=== PATIENT | female | born 2005 | race Caucasian/White ===

== ENCOUNTER 2024-07-28 00:26 | Emergency (ER) | payer BC, SELFPAY ==
--- OUTSIDE RECORDS SUMMARY | 2024-07-28 00:29 | XMS_ITS | Continuity of Care Document ---
Author Organization [facility] Address [address] [address] [place] [address] Phone Care Team Providers Care Hand Polisher Name Role Phone No Information Unavailable Unavailable Advance Directives Directive Yes / No Effective Date File Name No Information Encounters Encounter Description Practice Location Reason(s) For Visit Diagnoses Date Provider Providers Copied on Encounter [facility], [address] [address], [place], [place], [id number], [place] tel:[phone] No Information No Information Family History Family Member Type Diagnosis Age At Onset No Information Payers Payer name Insurance type Covered constitution party ID Authoriza tion(s) No Information Social History Type Description Quantity Date Captured Comments Sex Female Smoking Status No Information Chief Complaint And Reason For Visit No Information Reason For Referral Reason For Referral No Information History Of Present Illness Encounter Date Complaint History Of Prese nt Illness No Information Functional Status Date Functional Assessmen t No Information Instructions Date Instruction Additional Infor mation No Information Assessments Type Assessment Date No Information Patient Care Teams Name Effective Dates (start - stop) Status Members No Information
--- OUTSIDE RECORDS SUMMARY | 2024-07-28 00:29 | XMS_ITS | Clinical Summary ---
Author Organization [facility] Address [address] [address] Phone Care Team Providers Care Voice Professor Name Role Phone Unavailable Primary Care Provider Unavailabl e Allergies Active Allergy Reactions Criticality Noted Date Comments Cats Hives High 06/07/2019 Contact dermatitis Medications acyclovir (Zovirax) 200 MG capsule Take 200 mg by mouth two times a day. 03/11/2021 Active escitalopram (Lexapro) 5 MG tablet Take 10 mg by mouth one time a day. 09/25/2021 Active ethinyl estradiol-etono gestrel (Nuvaring) 0.12-0.015 MG/24HR vaginal insert 10/03/2020 Active nitrofurantoin (Macrodantin) 50 MG capsule 08/24/2021 Activ e hydrOXYzine HCl (Atarax) 25 MG tablet Take 1 Tablet by mouth at bedtime as needed. 07/06/2021 Active traZODone (Desyrel) 50 MG tablet Take 25-50 mg by mouth at bedtime as needed. 07/30/2020 Active Active Problems Problem Noted Date Diagnosed Date Nicotine vapor product user 10/21/2021 Recurrent UTI - post coital 10/21/2021 Recurrent major depressive disorder, in partial remission 09/12/2018 Generalized anxiety disorder 05/15/2018 Murmur, heart 11/25/2010 Overview (10/21/2021): Normal physiologic still's murmur and split S2, see cardiology notes 11/08 Attention deficit hyperactivity disorder (ADHD) 07/10/2009 Immunizations Name Administration Dates Next Due COVID-19 mRNA Vaccine (Pfize r-Purple 12+ Yrs) 03/26/2021,09/09/2020,08/19/2020 DTaP <7 years 12/18/2007, 7,2003,04/21,2003 Hepatitis A, Ped/Adolescent 2 dose 12/18/2007, Hepatitis B, Pediatric/adolescent 05/29/2006 Hepatitis B/HIB (Comvax) 2003,2003 Hib PRP OMP (PedvaxHib) 05/29/2006 Human Papilloma Virus 9 12/09/2016,02/19/2016 IPV 12/18/2007, 4,2003,02/24 Influenza (6-35 Mo) PF-Singl e Dose Syringe/Vial (Flu Clinic) 03/02/2004 Influenza A H1n1 Nasal 03/21/2014 Influenza Live Intranasal Qu ad (Flumist) 03/21/2014 Influenza Quad Split 02/26/2020,01/12/2018 Influenza Quadrivalent Intradermal PF 02/26/2020 ,01/12/2018 Influenza Trivalent Adjuvant ed Preservative Free (Fluad) 02/12/2013,06/09/2006 Influenza Trivalent With Preservative 02/12/2013 ,06/09/2006,03/02/2004 Influenza Unspecified Formulation 2020,03/21/2014,02/12/2013,06/09,03/02/2004 Influenza Vaccine (6 months - 64 Years) Quad PF Syringe (Flu Clinic) 01/28/2021,02/26/2019,02/13/2017,02/18,03/21/2014 MMR 12/18/2007,01/06/2004 Meningococcal MCV4 (Menveo) 2 Vials 04/12/2019,0 12/04/2014 Pneumococcal Conjugate, (Prevnar)7-valent 05/29/2006,2003,2003 Tdap (7 years and older) 12/04/2014 Varicella (Varivax) 12/04/2014,01/06/2004 Medical History Medical History Date Comments Nicotine vapor product user 10/21/2021 Attention deficit hyperactiv ity disorder (ADHD) 07/10/2009 Generalized anxiety disorder 05/15/2018 Murmur, heart 11/25/2010 Formatting of th is note might be different from the original. Normal physiologic still's murmur and split S2, see cardiology notes 11/08 Recurrent major depressive d isorder, in partial remission (HCC) 09/12/2018 Recurrent UTI - post coital 10/21/2021 Social History Tobacco Use Types Packs/Day Years Used Date Smoking Tobacco: Never Smokeless Tobacco: Never Comments:mother and father s moked; uses vapes Comments Unknown Sex and Gender Information Value Date Recorded Sex Assigned at Not on file Legal Sex Female 9:09 AM CDT Gender Identity Not on file Sexual Orientation Not on file Obstetrics History Last Filed Vital Signs Vital Sign Reading Time Taken Comments Blood Pressure 100/68 10/21/2021 9:27 AM CDT Pulse 92 10/21/2021 9:27 AM CDT Temperature 36.7 C (98 F) 10/21/2021 9:27 AM CDT Respiratory Rate - - Oxygen Saturation 98% 10/21/2021 9:27 AM CDT Inhaled Oxygen Concentration - - Weight 74.3 kg (163 lb 12.8 oz) 10/21/2021 9:27 AM CDT Height - - Body Mass Index - - Plan of Treatment Health Maintenance Due Date Last Done Comments Cervical Cancer Screening 2003 Last pap w/ HPV Testing 2003 Last pap w/o HPV Testing 2003 Chlamydia Screening 2019 Meningococcal B Vaccine (Standing Order) (1 of 2 - Standard) 2019 ADULT COMPLETE PHYSICAL AGE 19-21 YRS 2022 COVID-19 Vaccine ( season) 2023 03/26/2021, 09/09/2020, 08/19/2020 Influenza Vaccine Seasonal (Standing Order) (#1) 2023 01/28/2021, 01/28/2021, 02/26/2020, Additional history exists TETANUS (Standing Order) 12/04/2024 015, 12/18/2007, 05/29/2006, Additional history exists Hepatitis B Vaccine (Standing Order) Completed 05/29/2006, 2003, 2003 Pneumococcal/PCV20 Vaccine: Pediatrics (2-5 yrs) and At-Risk Patients (6-49 yrs) (Standing Order) Aged Out 05/29/2006, 2003, 2003 No longer eligible based on patient's age to complete this topic PERTUSSIS (Standing Order) Completed 12/04, 12/18/2007, 05/29/2006, Additional history exists HPV Vaccine (Standing Order) Completed 12/09/2016, 02/19/2016 Insurance [employer] [facility] [employer] Address: [facility] [address] [place] [address]
--- OUTSIDE RECORDS SUMMARY | 2024-07-28 00:29 | XMS_ITS | Clinical Summary ---
Author Organization [employer] Address [address] [place] [address] Care Team Providers Care Family Assistant Name Role Phone Manisha Ramos NP Unavailable [phone] Elisha Infante OD Unavailable Barbara Lu MD Unavailable [phone] Elisha Infante OD Unavailable Barbara Lu MD Unavailable [phone] Sheryl Ventura MD Primary Care Provi kristie Allergies Active Allergy Reactions Criticality Noted Date Comments Cat Dander Hives Medium 06/07/2019 Nitrofurantoin Hives High 12/18/2023 Medications acyclovir (ZOVIRAX) 200 mg capsule Take 200 mg by mouth. 1 Active Ganciclovir (Zirgan) 0.15 % gelIndications:He rpes simplex keratitis Instill small amount in the left eye 5 times per day x 5 days, then 3 times per day x 5 days 5 g 3 Active valACYclovir (VALTREX) 500 mg tabletIndications :Herpes keratitis Take 1 Tablet (500 mg) by mouth once daily. 30 Tablet 5 4 Active busPIRone (BUSPAR) 5 mg tabletIndications :Generalized anxiety disorder Take 1 Tablet (5 mg) by mouth two times daily. 60 Tablet 1 4 Active cephalexin 250 mg capsuleIndication s:Recurrent UTI Take 1 tablet within 3 hours of intercourse to prevent recurrent UTI. 30 Capsule 2 4 Active etonogestreL-ethi nyl estradioL (Haloette) vaginal ringIndications:E ncounter for other contraceptive management INSERT 1 RING VAGINALLY AND LEAVE IN PLACE FOR 3 CONSECUTIVE WEEKS, THEN REMOVE FOR 1 WEEK. REPEAT 9 Each 2 4 Active escitalopram oxalate (LEXAPRO) 20 mg tabletIndications :Generalized anxiety disorder TAKE 1 TABLET(20 MG) BY MOUTH DAILY 90 Tablet 1 5 Active Active Problems Problem Noted Date Diagnosed Date Cervical cancer screening 04/02/2024 Overview (07/10/2024): 03/2024 UNS 06/2024 NIL Plan: Pap due 06/2027 Nicotine vapor product user 10/21/2021 Recurrent UTI 10/21/2021 Recurrent major depressive disorder, in partial remission 09/12/2018 Generalized anxiety disorder 05/15/2018 Heart murmur 11/25/2010 Overview (11/25/2010): Normal physiologic still's murmur and split S2, see cardiology notes 11/08 Attention deficit hyperactivity disorder (ADHD) 07/10/2009 Resolved Problems Problem Noted Date Diagnosed Date Resolved Date Sever's disease 02/17/2013 03/06/2018 Overview (02/17/2013): See ortho notes 01/11 No active medical problems 02/24/2011 1 05/06/2017 Encounters Date Type Department Care Team Description 07/05/2024 Medical Messaging [facility] [place] [address] [address] Sheryl Ventura MD Celiac results 06/28/2024 8:35 AM BEDSPREAD SEAMER Office Visit [facility] [place] [address] [address] Sheryl Ventura MD Concerns (Concerns about Celiac. Family History ) 06/27/2024 Travel 06/15/2024 Refill [facility] [address] [place] [address] Sheryl Ventura MD Refill Request (Escitalopram Oxalate) 06/06/2024 8:45 AM BEDSPREAD SEAMER Nurse/Clinic Staff Only [facility] [address] [place] [address] Immunization/Injecti on (2ND HEPATITIS B VACCINE ); Immunization/Injecti on 06/05/2024 Travel 06/04/2024 5:05 PM BEDSPREAD SEAMER Office Visit [facility] [address] [place] [address] Laura Love, BOATBUILDER SUPERVISOR Cough 06/04/2024 Travel 05/06/2024 Nurse/Clinic Staff Only [facility] [address] [place] [address] Sheryl Ventura MD 05/05/2024 Travel from Last 3 Months Immunizations Immunization Administration Dates Next Due AMB Influenza, IIV4 PF (=>6 mos Flulaval,Fluzone Fluarix)(Flu Clinic Only) 02/26/2019 COVID-19 vaccine (Stuffle 30mcg/0.3mL) PF, MDV 03/26/2021,09/09/2020,08/19/2020 DTaP 12/18/2007, 7,2003,04/21,2003 HIB PRP-OMP (PedvaxHIB) 05/29/2006 HIB-HepB (Comvax) 2003,2003 HPV 9 (Gardasil 9) 12/09/2016,02/19/2016 Hepatitis A (Peds) 12/18/2007,05/29/2006 Hepatitis B (Adult) 06/06/2024,05/06/2024 Hepatitis B (Peds) 05/29/2006 INFLUENZA, IIV3 PF (AGE >= 6 MO) 03/20/2024 Inactivated Polio Vaccine 12/18/2007,03/2004,2003,02/24 Influenza A (H1N1), Live Intranasal 03/21/2014 Influenza Virus, Unspecified 01/28/2021, 03/21/2014,02/12/2013,06/09,03/02/2004 Influenza, IIV3 (Age 6-35 mos) 03/02/2004 Influenza, IIV3 (Age >=3 years) 02/12/2013,06/09 Influenza, IIV4 01/27/2023, 2,01/28/2021,02/13,02/19/2016,03/21/2014 Influenza, IIV4 (=>6mos) MDV 02/26/2020,01/13/20 18 Influenza, Intradermal, Quad rivalent, Pf 02/26/2020,01/12/2018 Influenza,LAIV4 Live Intrana eliazar (Flumist) 03/21/2014 MENINGOCOCCAL VACCINE 2 VIAL 2MO-55YO (MENVEO) 04/12/2019,12/04/2014 MMR 12/18/2007,01/06/2004 Pneumococcal conj 7-Valent (Prevnar 7) 7,2003,2003 Tdap 12/04/2014 Varicella Vaccine 12/04/2014,01/06/2004 Family History Medical History Relation Name Comments Good Health Father Atrial fibrillation Maternal Grandfather Hypertension Maternal Grandfather Good Health Mother Cancer Other 1 skin great GF Stroke Other 2 great GM Heart attack Paternal Grandfather Celiac disease Sister Heart Disease Sister anomalous loren nary artery Relation Name Status Comments Father Maternal Grandfather Mother Other 1 Other 2 Paternal Grandfather Sister Social History Tobacco Use Types Packs/Day Years Used Date Smoking Tobacco: Never Passive Smoke Exposure: Yes Smokeless Tobacco: Never Tobacco Cessation:Counseling Given: No Alcohol Use Standard Drinks/Week Comments Yes 0 (1 standard drink = 0.6 oz pur e alcohol) Occ PHQ-2 Answer Date Recorded PHQ-2 TOTAL SCORE 4 12/18/2023 Social Connections Answer Date Recorded Do you often feel lonely or isolated from those around you? 0 03/23/2024 Financial Resource Strain Answer Date R ecorded Difficulty of Paying Living Expenses 3 03/23/2024 Difficulty of Paying Living Expenses Not on file 03/23/2024 Food Insecurity Answer Date Recorded Do you worry your food will run out before you are able to buy more? 1 03/23/2024 Transportation Needs Answer Date Record ed Does lack of transportation keep you from medica l appointments? 1 03/23/2024 Does lack of transportation keep you from work, meetings or getting things that you need? 1 03/23/2024 Housing Stability Answer Date Recorded What is your housing situation today? 1 03/23/2024 Utilities Answer Date Recorded Do you have trouble paying f or utilities (for example, heat, electricity, water, phone)? 1 03/23/2024 Comments No Sex and Gender Information Value Date Recorded Sex Assigned at Not on file Legal Sex Female 6:30 AM BEDSPREAD SEAMER Gender Identity Not on file Sexual Orientation Not on file Obstetrics History Para Term AB IAB SAB Ectopic Multiple Livin g Live Births 0 0 0 0 0 0 0 0 0 0 0 Last Filed Vital Signs Vital Sign Reading Time Taken Comments Blood Pressure 101/69 06/28/2024 8:30 AM BEDSPREAD SEAMER Pulse 85 06/28/2024 8:30 AM BEDSPREAD SEAMER Temperature 36.8 C (98.2 F) 06/04/2024 5:51 PM BEDSPREAD SEAMER Respiratory Rate 18 06/04/2024 5:51 PM BEDSPREAD SEAMER Oxygen Saturation 99% 06/28/2024 8:30 AM BEDSPREAD SEAMER Inhaled Oxygen Concentration - - Weight 98.8 kg (217 lb 12.8 oz) 06/28/2024 8:30 AM BEDSPREAD SEAMER Height 171 cm (5' 7.32) 06/28/2024 8:30 AM BEDSPREAD SEAMER Body Mass Index 33.79 06/28/2024 8:30 AM BEDSPREAD SEAMER Plan of Treatment Upcoming Encounters Date Type Department Care Team (Late st Contact Info) Description 11/04/2024 10:15 AM CDT Nurse/Clinic Staff Only [facility] [address] [place] [address] 12/23/2024 11:00 AM CDT Office Visit [facility] [address] [place] [address] Ana Barney PA [address] [place] [address] Health Maintenance Due Date Last Done Comments Hepatitis C screening for age 18-79 2021 COVID-19 vaccine series ( season) 2023 03/26/2021, 09/09/2020, 08/19/2020 Chlamydia for age 16-24 11/06/2024 11/07/19 24, 07/03/2023, 01/27/2023, Additional history exists Tetanus booster 12/04/2024 12/04/2014 Depression screening for age 12+ 12/17/2024 12/18/2023, 09/21/2023, 07/03/2023, Additional history exists BMI (ht and wt on same day) for age 18+ 06/28/2025 06/28/2024, 03/25/2024, 12/18/2023, Additional history exists Pap test for age 21-65 06/28/2027 06/28/2024, 2023 Pneumococcal series for age 6-49 Aged Out 05/29/2006, 2003, 2003 No longer eligible based on patient's age to complete this topic Tdap Completed 12/04/2014 HPV series for age 9-26 Completed 12/09/2016, 02/18 Meningococcal series for age 11-21 Completed 04/12/2019, 12/04/2014 HIV for age 15-65 Completed 01/27/2023 Influenza Vaccine Completed 03/20/2024, , 04/20/2022, Additional history exists Procedures Procedure Name Priority Date/Time Associated Diagnosis Comments RECORDS MANAGEMENT ANALYST THIN PREP PAP SCREEN IMAGED Routine 06/28/2024 9:03 AM BEDSPREAD SEAMER Pap smear for cervical cancer screening CELIAC CASCADE PANEL Routine 06/28/2024 8:58 AM BEDSPREAD SEAMER Family history of celiac disease GC CHLAMYDIA TRACH PROBE Routine 11/07/2023 8:50 AM CDT Lower urinary tract symptoms (LUTS) ANTI HIV 1/2 Routine 01/27/2023 10:01 AM CDT Screening for HIV (human immunodeficiency virus) from Last 3 Months or Most Recently Relevant to Health Maintenance Results * RECORDS MANAGEMENT ANALYST THIN PREP PAP SCREEN IMAGED (06/28/2024 9:03 AM BEDSPREAD SEAMER) Case Report Gynecologic Cytology Report Case: [id number] Authorizing Provider: Sheryl Ventura Collected: 06/28/2024 0903 MD Zara Ordering Location: [facility] Received: 06/28/2024 0903 Clinic First Screen: Ramy Mendez Specimen: RECORDS MANAGEMENT ANALYST ThinPrep Vial Screening, Cervical 07/10/2024 12:22 PM CDT [facility] [employer] [facility] INTERPRETATION/ RESULT NEGATIVE FOR INTRAEPITHELIAL LESION OR MALIGNANCY (NIL) (none) 07/10/2024 12:22 PM CDT [facility] ENTRAL [facility] at 1222 CDT ORGANISM(S) Shift in daniel suggestive of bacterial vaginosis 07/10/2024 12:22 PM CDT [facility] ENTRAL LAB[facility] SPECIMEN ADEQUACY Satisfactory for evaluation Endocervical component present 07/10/2024 12:22 PM CDT [facility] Date of LMP 05/06/2024 07/10/2024 12:22 PM CDT [facility] EN[facility]AL LAB[facility]AT[facility] Last Pap Date 03/25/24 07/10/2024 12:22 PM CDT [facility] Last Pap Result UNS 12:22 PM CDT [facility] EN[facility]AL LAB[facility] Abnormal Pap or [place] Bx in last 5 years No 07/10/2024 12:22 PM CDT [facility] Menstrual Status Regular Periods 07/10/2024 12:22 PM CDT [facility] [place] Bx Done Today No 07/10/2024 12:22 PM CDT [facility] ENTRAL LAB[facility]ORY Additional Information None given 07/10/2024 12:22 PM CDT [facility] Comment: Cytology is screened at [facility], Central Laboratory - [address], [place] [address] and [facility] - [address] [place] [address] and [facility] - [address], [place] [address] Interpreted at [facility], Central Laboratory - [address], [place] [address] Automated Review Successful 07/10/2024 12:22 PM CDT [facility] [employer] [facility] ENTRAL LABORATORY Comment:Specimen processed s uccessfully by automated chemical production engineer device, ThinPrep Imaging System, [employer] Note The pap test is a screening technique, not a diagnostic procedure. It is used primarily to screen for squamous cancers and precursor lesions. Published studies have shown that it is subject to both false negative and false positive results. The pap test should not be used as the sole means to diagnose or exclude pre-malignant and malignant lesions. 07/10/2024 12:22 PM CDT [facility] ENTRDC LABORATORY Other (Cervical) Non-Blood / Unknown 06/28/2024 9:03 AM BEDSPREAD SEAMER 06/28/2024 9:03 AM BEDSPREAD SEAMER Sheryl Ventura MD PATHOLOGY/CYTOLOGY Final Result Performing Organization Address [facility] [[email or web address]] Co de Phone Number [facility] [address] [place] [address], [place] * (ABNORMAL) CELIAC CASCADE PANEL (06/28/2024 8:58 AM BEDSPREAD SEAMER) CELIAC DISEASE COMPREHENSIVE PANEL INTERPRETATION [employer] Comment: No serological evidence of celiac disease. Total serum IgA is elevated. Consider mucosal inflammatory conditions or underlying gammopathy. TISSUE TRANSGLUTAMINASE AB, IGA <1.0 U/mL [employer] Comment: Value Interpretation ----- <15.0 Antibody not detected > or = 15.0 Antibody detected IMMUNOGLOBULIN A 384(H) 47 - 310 mg/dL [employer] Blood BLOOD SPECIMEN / Unknown 06/28/2024 8:58 AM BEDSPREAD SEAMER 06/28/2024 8:58 AM BEDSPREAD SEAMER Sheryl Ventura MD SEND OUTS Fin al Result Performing Organization Address City/[facility]/ZIP Co de Phone Number [employer] [facility] [address] [place] [address], [place] [phone] [facility] [address] [place] [address] * GC & CHLAMYDIA DNA PCR [[id number]] (11/07/2023 8:50 AM CDT) CHLAMYDIA PROBE Negative 8:10 PM CDT [facility] TRAL LABORATORY N GONORRHOEAE PROBE Negative 11/07/2023 8:10 PM CDT [facility] TRA LABORATORY Other URINE SPECIMEN / Unknown Non-Blood / Unknown 11/07/2023 8:50 AM CDT 11/07/2023 8:50 AM CDT us Ene GALEANA MICROBIOLOGY Final Result Performing Organization Address [facility]/ZIP Co de Phone Number [facility] [address] [place] [address], [place] * ANTI HIV 1/2 [52954.0] (01/27/2023 10:01 AM CDT) Pathologist [facility] HIV-1/HIV-2 SCREEN Non-Reacti ve Non-Reacti ve 01/27/2023 4:50 PM CDT [facility] TRAL LABORATORY Comment:HIV-1 p24 and HIV-1/ HIV-2 Ab Not Detected. Blood BLOOD SPECIMEN / Unknown Venipuncture / Unknown 01/27/2023 10:01 AM CDT 01/27/2023 10:03 AM CDT us Sheryl Ventura MD SEND OUTS Fin al Result [facility] [address] [place] [address], from Last 3 Months or Most Recently Relevant to Health Maintenance Insurance [facility] FED EMP [facility] FED EMP WC [facility] Care Teams Family Assistant Relationship Specialty Start Date End Date Sheryl Ventura MD [address] [place] [address] PCP - General Pediatric 10/19/18 Manisha Ramos BOATBUILDER SUPERVISOR Family Practice 10/15/10 Elisha Infante OD Mechanic General Operational Test 07/29/13 Barbara Lu MD Ophthalmology Surgery 12/09/13 Elisha Infante OD Mechanic General Operational Test 07/29/13 Barbara Lu MD Ophthalmology Surgery 12/09/13
[2024-07-28 00:31] VITALS: BP 145/84; PULSE 103; RESP 18; TEMP 36.8; O2SAT 99; BMI 33.7
--- NOTE | 2024-07-28 00:33 | ED_ITS ---
HPI - General Adult General Chief complaint: Abdominal Pain Stated complaint: upper abdominal pain Time Seen by Provider: 07/28/24 00:30 History of Present Illness HPI narrative: CC: Upper Abdominal Pain abdominal pain starts on left side on goes to left flank. has been ongoing for last 3 hours. no pain in triage. denies fevers, n/v, diarrhea. 19-year-old woman presenting to the emergency department concern of upper abdominal pain Started around the time that was eating supper this evening. Is a deep aching pain mid abdomen seems to radiate rate around both sides somehow to her back. Notes a history of recurrent urinary tract infections but denies urinary symptoms. No history kidney stones. But 20 minutes prior to this interview she says she has double over I believe in the parking lot coming into the ER. Does have a history of heartburn but this feels different. Is not really short of breath but does start to breathe fast with the pain. Nauseated with the pain. Pain may last for min at a time. Thought maybe would be gas pain but just is not resolving and seems to be exactly the same location. Related Data Home Medications ?Medication ?Instructions ?Recorded ?Confirmed escitalopram oxalate 20 mg tablet 20 mg PO DAILY 07/28/24 07/28/24 etonogestrel 0.12 mg-ethinyl 1 vag ring vaginal DIRECTED 07/28/24 07/28/24 estradiol 0.015 mg/24 hr vaginal ring (Haloette) Allergies Allergy/AdvReac Type Severity Reaction Status Date / Time nitrofurantoin (From Allergy Mild Hives Verified 07/28/24 00:33 Macrobid) Review of Systems Status of ROS: Reports: 6 or more systems reviewed and unremarkable except as noted in History and below [facility] Medical History Depression ?F32.A - Depression, unspecified (ICD-10) Social History Smoking Status: Never smoker Second hand tobacco smoke exposure: No How often do you have a drink containing alcohol: never AUDIT-C Alcohol total score: 0 Non-prescribed substance use: denies use Exam Narrative: Exam Narrative: Pleasant. NAD. Currently essentially pain-free. Skin is warm and dry. She is well-perfused without edema. Breathing easily. Lungs are clear. Heart in mildly elevated rate in a regular rhythm. Abdomen is soft and nontender; no flank pain. No chest pain palpation. Const: Vital Signs, click to edit/add: Vital Signs - 24 hr 07/28/24 00:31 07/28/24 00:48 07/28/24 01:47 Temperature 98.3 F 98.3 F Pulse Rate [Right Pulse Oximeter] 103 H 81 Respiratory Rate 18 18 Blood Pressure [Ri ght Upper Arm] 145/84 H 127/79 Pulse Oximetry 99 99 99 Oxygen Delivery Me thod Room Air Room Air 07/28/24 02:05 Temperature 98.3 F Pulse Rate [Right Pulse Oximeter] Respiratory Rate Blood Pressure [Ri ght Upper Arm] Pulse Oximetry Oxygen Delivery Me thod Documenting provider has reviewed patient's vital signs: yes Course Vital Signs Vital signs: Initial Vital Signs Temperature 98.3 F 07/28/24 00:31 Temperature Source Temporal Artery Scan 07/28/24 00:31 Pulse Rate 103 H 07/28/24 00:31 Respiratory Rate 18 07/28/24 00:31 Blood Pressure 145/84 H 07/28/24 00:31 Blood Pressure Mean 104 07/28/24 00:31 Blood Pressure Position Sitting 07/28/24 00:31 Pulse Oximetry 99 07/28/24 00:31 Oxygen Delivery Method Room Air 07/28/24 00:31 Vital Signs Temperature 98.3 F 07/28/24 00:31 Pulse Rate 103 H 07/28/24 00:31 Respiratory Rate 18 07/28/24 00:31 Blood Pressure 145/84 H 07/28/24 00:31 Pulse Oximetry 99 07/28/24 00:31 Oxygen Delivery Method Room Air 07/28/24 00:31 Temperature 98.3 F 07/28/24 02:29 Pulse Rate 81 07/28/24 02:29 Respiratory Rate 18 07/28/24 02:29 Blood Pressure 127/79 07/28/24 02:29 Pulse Oximetry 99 07/28/24 01:47 Oxygen Delivery Method Room Air 07/28/24 01:47 Medications Administered Medications: Discontinued Medications Generic Name Dose Route Start Last Admin Trade Name Freq PRN Reason Stop Dose Admin Ketorolac Tromethamine 30 mg 07/28/24 01:59 07/28/24 02:05 Ketorolac 30 Mg/Ml Inj IVP 07/28/24 02:00 30 mg ONCE ONE Administration Ondansetron HCl 4 mg 07/28/24 00:44 07/28/24 00:54 Ondansetron Odt 4 Mg Tab PO 07/28/24 00:45 4 mg ONCE ONE Administration Medical Decision Making MDM Narrative Medical decision making narrative: Pending urinalysis. This might be ureteral stone and colic. Could trial a GI cocktail for some heartburn spasm here. The brevity of the intensive discomfort I be dissection or ureteral stone. I suppose could be duodenitis but otherwise does not have any GI symptoms. Perhaps has been experiencing some biliary colic. Think labs will help guide further evaluation. On reassessment has continued to have intermittent flares/cramps of pain. Has seemed to move into the middle abdomen. CT imaging by my independent review looks to show rather full stomach and duodenum but little else of remark in the abdomen. No perinephric stranding. All labs are normal. Urinalysis with mild findings. Would treat only if positive culture. Radiology over-read below Indication: Upper abdominal pain, bilateral flank pain Technique: Noncontrast CT through the abdomen and pelvis with multiplanar reformats. Comparison: None Findings: Lower chest: No acute abnormality appreciated. Hepatobiliary: No significant parenchymal abnormality is appreciated. Spleen: Unremarkable. Pancreas: No acute abnormality appreciated. Adrenal glands: No acute abnormality appreciated. Kidneys: No significant parenchymal abnormality appreciated. No visualized calculi. No hydronephrosis. Bowel: No obstruction. No focal perienteric or pericolonic stranding is appreciated. The appendix is visualized and appears unremarkable. Vascular: Poorly evaluated on this noncontrast examination. Lymph nodes: No gross lymphadenopathy. Peritoneum: No free air. No free fluid. : No acute abnormality appreciated. Soft tissues: No acute abnormality appreciated. Bones: No acute fracture. No lytic or blastic lesion. Impression: No abnormal findings appreciated to account for patient`s reported symptoms. Please note that all CT scans at this facility use dose modulation, iterative reconstruction, and/or weight-based dosing when appropriate to reduce radiation dose to as low as reasonably achievable. Dictated by Rosendo Wick MD @ 07/28/2024 1:44:00 AM Was seen earlier in June and Pap smear suggested BV may be present but she does not have any symptoms otherwise. Was also tested at that time for celiac disease. Apparently was negative but IgA was mildly elevated. Sometimes BV does cause unusual degree of abdominal pain. Given age and without comorbidities would be unlikely to have vascular dissection or ischemic bowel. Does not appear to have that kind of persistent/intense pain that I would normally see with ischemia. Will check D-dimer for further screening. She would like something more for pain; will order some ketorolac for background effect. Perhaps antispasmodic would be useful. Normal D-dimer does not entirely rule out dissection or clot but certainly less likely. With low pretest probability. Anticipating following up with [facility] for further testing related to celiac disease. Incidentally mother just had endoscopy and the home will be going gluten free. On some level I am reassured by the lack of reproducibility of your pain. Your labs and imaging overall is reassuring. We will be culturing your urine and if this grows something that appears to be treatable, we will give you a call. Certainly return for increasing and persistent pain, intractable vomiting, associated fever. Can certainly take ibuprofen or acetaminophen as you mentioned. Lab Data Lab results reviewed: Yes I reviewed the patient's lab results Labs: Lab Results 07/28/24 07/28/24 07/28/24 Range/Units 00:34 00:48 01:30 WBC 10.12 (4.50-11.00) K/uL RBC 4.89 (4.00-5.20) m/uL Hgb 14.3 (12.0-16.0) gm/dL Hct 42.1 (33.0-51.0) % MCV 86 (80-100) fL MCH 29 (26-34) pg MCHC 34 (32-36) gm/dL RDW Coeff of Nate 12.3 (11.5-15.5) % Plt Count 284 (140-440) K/uL Neut % (Auto) 63.9 (42.0-72.0) % Lymph % (Auto) 27.9 (20-44) % [place] % (Auto) 6.0 (0.0-11.0) % Eos % (Auto) 1.8 (0.0-7.0) % Baso % (Auto) 0.2 (0.0-3.0) % Neut # (Auto) 6.47 (1.7-7.0) K/uL Lymph # (Auto) 2.82 (0.90-2.90) K/uL [place] # (Auto) 0.60 (0.00-0.90) K/UL Eos # (Auto) 0.18 (0.00-0.50) K/uL Baso # (Auto) 0.02 (0.00-0.30) K/uL Abs Immat Gran (auto) 0.02 (0.00-0.30) K/uL Imm/Tot Granulo (auto) 0.2 % D-Dimer Quant (PE/DVT) 0.31 (0.00-0.50) ug/ml Sodium 140 (135-149) mmol/L Potassium 3.5 L (3.6-5.1) mmol/L Chloride 106 (96-114) mmol/L Carbon Dioxide 23 (20-32) mmol/L Anion Gap 11 (7-15) mEq/L BUN 12 (5-24) mg/dL Creatinine 0.7 (0.5-1.5) mg/dL Estimated Creat Clear 123.63 Estimated GFR 126 ml/min Glucose 92 (60-115) mg/dL Calcium 9.4 (8.4-10.6) mg/dL Total Bilirubin 0.5 (0.1-1.5) mg/dL Direct Bilirubin 0.3 (0.0-0.5) mg/dL AST 27 (12-35) U/L ALT 20 (4-35) U/L Alkaline Phosphatase 91 (40-150) U/L Total Protein 7.5 (6.0-8.3) g/dL Albumin 4.4 (3.3-5.0) g/dL Urine Color Yellow (Yellow) Urine Appearance Clear (Clear) Urine pH 6.0 (5.0-8.5) Ur Specific [place] 1.015 (1.000-1.030) Urine Protein Negative (Negative) Urine Glucose (UA) Negative (Negative) Urine Ketones Negative (Negative) Urine Blood Trace-intact A (Negative) Urine Nitrite Negative (Negative) Urine Bilirubin Negative (Negative) Urine Urobilinogen 0.2 (0.2-1.0) Ur Leukocyte Esterase 1+ A (Negative) Urine RBC 2-5 A (0-2) Urine WBC 2-5 (0-5) Ur Squamous Epith Cells None (None-Few) Urine Bacteria Few A (None) Urine HCG, Qual (Negative) Lab Acknowledgement 07/28/24 07/28/24 Range/Units 02:00 Unknown WBC (4.50-11.00) K/uL RBC (4.00-5.20) m/uL Hgb (12.0-16.0) gm/dL Hct (33.0-51.0) % MCV (80-100) fL MCH (26-34) pg MCHC (32-36) gm/dL RDW Coeff of Nate (11.5-15.5) % Plt Count (140-440) K/uL Neut % (Auto) (42.0-72.0) % Lymph % (Auto) (20-44) % [place] % (Auto) (0.0-11.0) % Eos % (Auto) (0.0-7.0) % Baso % (Auto) (0.0-3.0) % Neut # (Auto) (1.7-7.0) K/uL Lymph # (Auto) (0.90-2.90) K/uL [place] # (Auto) (0.00-0.90) K/UL Eos # (Auto) (0.00-0.50) K/uL Baso # (Auto) (0.00-0.30) K/uL Abs Immat Gran (auto) (0.00-0.30) K/uL Imm/Tot Granulo (auto) % D-Dimer Quant (PE/DVT) (0.00-0.50) ug/ml Sodium (135-149) mmol/L Potassium (3.6-5.1) mmol/L Chloride (96-114) mmol/L Carbon Dioxide (20-32) mmol/L Anion Gap (7-15) mEq/L BUN (5-24) mg/dL Creatinine (0.5-1.5) mg/dL Estimated Creat Clear Estimated GFR ml/min Glucose (60-115) mg/dL Calcium (8.4-10.6) mg/dL Total Bilirubin (0.1-1.5) mg/dL Direct Bilirubin (0.0-0.5) mg/dL AST (12-35) U/L ALT (4-35) U/L Alkaline Phosphatase (40-150) U/L Total Protein (6.0-8.3) g/dL Albumin (3.3-5.0) g/dL Urine Color (Yellow) Urine Appearance (Clear) Urine pH (5.0-8.5) Ur Specific [place] (1.000-1.030) Urine Protein (Negative) Urine Glucose (UA) (Negative) Urine Ketones (Negative) Urine Blood (Negative) Urine Nitrite (Negative) Urine Bilirubin (Negative) Urine Urobilinogen (0.2-1.0) Ur Leukocyte Esterase (Negative) Urine RBC (0-2) Urine WBC (0-5) Ur Squamous Epith Cells (None-Few) Urine Bacteria (None) Urine HCG, Qual Negative (Negative) Lab Acknowledgement Test Added Discharge Plan Discharge Clinical Impression: Abdominal pain Patient Disposition: Home w/ Parent or Adult Condition: Stable Additional Instructions: On some level I am reassured by the lack of reproducibility of your pain. Your labs and imaging overall is reassuring. We will be culturing your urine and if this grows something that appears to be treatable, we will give you a call. Certainly return for increasing and persistent pain, intractable vomiting, associated fever. Can certainly take ibuprofen or acetaminophen as you mentioned. Prescriptions: No Action etonogestrel-ethinyl estradiol [Haloette] 0.12-0.015 mg/24 hr ring 1 vag ring VAGINAL DIRECTED Patient Comments: [NO ORIGINAL SIG] escitalopram oxalate 20 mg tablet 20 mg PO DAILY Follow Up/Referrals: Sheryl Ventura MD [Primary Care Provider] - Stand Alone Forms: [employer] Info Instructions
[2024-07-28 00:36] LABS: Appearance Urine Clear (Clear); Bacteria Urine Few; Bilirubin Urine Negative (Negative); Blood Urine Trace-intact (Negative); Color Urine Yellow (Yellow); Glucose Urine Negative (Negative); Ketones Urine Negative (Negative); Leukocyte Esterase Urine 1+ (Negative); Nitrite Urine Negative (Negative); Protein Urine Negative (Negative); Specific Gravity Urine 1.015 (1.000-1.030); Urobilinogen Urine 0.2 (0.2-1.0)
[2024-07-28 00:48] VITALS: O2SAT 99
[2024-07-28 00:53] LABS: Basophils Absolute Auto 0.02 K/uL (0.00-0.30); Basophils Percent Auto 0.2 % (0.0-3.0); Eosinophils Absolute Auto 0.18 K/uL (0.00-0.50); Eosinophils Percent Auto 1.8 % (0.0-7.0); Hematocrit 42.1 % (33.0-51.0); Hemoglobin* 14.3 gm/dL (12.0-16.0); Immature Granulocytes Abs Auto 0.02 K/uL (0.00-0.30); Immature Granulocytes Pct Auto 0.2 %; Lymphocytes Absolute Auto 2.82 K/uL (0.90-2.90); Lymphocytes Percent Auto 27.9 % (20-44); Mean Corpuscular HGB Conc 34 gm/dL (32-36); Mean Corpuscular Hemoglobin 29 pg (26-34); Mean Corpuscular Volume 86 fL (80-100); Neutrophils Absolute Auto 6.47 K/uL (1.7-7.0); Neutrophils Percent Auto 63.9 % (42.0-72.0); Platelet Count* 284 K/uL (140-440); RDW Coefficient of Variation % 12.3 % (11.5-15.5); Red Blood Count 4.89 m/uL (4.00-5.20); White Blood Count* 10.12 K/uL (4.50-11.00)
[2024-07-28 00:54] LABS: Slide Review Reflex No
[2024-07-28] MEDS: ONDANSETRON ODT 4 MG TAB PO (00:54)
[2024-07-28 00:55] LABS: Ur HCG Qualitative* Negative (Negative)
[2024-07-28 01:11] LABS: Albumin* 4.4 g/dL (3.3-5.0); Chloride* 106 mmol/L (96-114); Potassium* 3.5 mmol/L (3.6-5.1); Sodium* 140 mmol/L (135-149)
[2024-07-28 01:14] LABS: Alanine Aminotransferase* 20 U/L (4-35); Alkaline Phosphatase* 91 U/L (40-150); Anion Gap 11 mEq/L (7-15); Aspartate Amino Transferase* 27 U/L (12-35); Bilirubin Direct* 0.3 mg/dL (0.0-0.5); Bilirubin Total* 0.5 mg/dL (0.1-1.5); Blood Urea Nitrogen* 12 mg/dL (5-24); Calcium* 9.4 mg/dL (8.4-10.6); Carbon Dioxide* 23 mmol/L (20-32); Creatinine* 0.7 mg/dL (0.5-1.5); Est. Creatinine Clearance* 123.63; Estimated Glomerular Filt Rate 126 ml/min; Glucose* 92 mg/dL (60-115); Total Protein* 7.5 g/dL (6.0-8.3)
--- NOTE | 2024-07-28 01:20 | CRLHL7_ITS ---
For Patients: As a result of the Century Cures Act, medical imaging exams and procedure reports are released immediately into your electronic medical record. You may view this report before your referring provider. If you have questions, please contact your health care provider. Indication: Upper abdominal pain, bilateral flank pain Technique: Noncontrast CT through the abdomen and pelvis with multiplanar reformats. Comparison: None Findings: Lower chest: No acute abnormality appreciated. Hepatobiliary: No significant parenchymal abnormality is appreciated. Spleen: Unremarkable. Pancreas: No acute abnormality appreciated. Adrenal glands: No acute abnormality appreciated. Kidneys: No significant parenchymal abnormality appreciated. No visualized calculi. No hydronephrosis. Bowel: No obstruction. No focal perienteric or pericolonic stranding is appreciated. The appendix is visualized and appears unremarkable. Vascular: Poorly evaluated on this noncontrast examination. Lymph nodes: No gross lymphadenopathy. Peritoneum: No free air. No free fluid. : No acute abnormality appreciated. Soft tissues: No acute abnormality appreciated. Bones: No acute fracture. No lytic or blastic lesion. Impression: No abnormal findings appreciated to account for patient`s reported symptoms. Please note that all CT scans at this facility use dose modulation, iterative reconstruction, and/or weight-based dosing when appropriate to reduce radiation dose to as low as reasonably achievable. Dictated by Rosendo Wick MD @ 07/28/2024 1:44:00 AM (Electronically Signed)
[2024-07-28 01:47] VITALS: BP 127/79; PULSE 81; RESP 18; TEMP 36.8; O2SAT 99
--- OUTSIDE RECORDS SUMMARY | 2024-07-28 01:48 | XMS_ITS | Continuity of Care Document ---
Author Organization [facility] Address [address] [address] [place] [address] Phone Care Team Providers Care Editorial Cartoonist Name Role Phone No Information Unavailable Unavailable Advance Directives Directive Yes / No Effective Date File Name No Information Encounters Encounter Description Practice Location Reason(s) For Visit Diagnoses Date Provider Providers Copied on Encounter [facility], [address] [address], [place], [place], [id number], [place] tel:[phone] No Information No Information Family History Family Member Type Diagnosis Age At Onset No Information Payers Payer name Insurance type Covered libertarian ID Authoriza tion(s) No Information Social History [...]
--- OUTSIDE RECORDS SUMMARY | 2024-07-28 01:48 | XMS_ITS | Clinical Summary ---
Author Organization [facility] Address [address] [place] [id number] Care Team Providers Care Vp Cardiovascular Service Line Name Role Phone Manisha Ramos NP Unavailable [phone] Elisha Infante OD Unavailable Barbara Lu MD Unavailable Elisha Infante OD Unavailable Barbara Lu MD Unavailable Sheryl Ventura MD Primary Care Provi kristie [...] Department Care Team Description 07/05/[address] [facility] [place] [address] [address] Sheryl Ventura MD Celiac results 06/28/2024 8:35 AM CASH ANALYST Office Visit [facility] [place] [address] [address] Sheryl Ventura MD Concerns (Concerns about Celiac. Family History ) 06/27/2024 Travel 06/15/[address] [facility] [address] [place] [address] Sheryl Ventura MD Refill Request (Escitalopram Oxalate) 06/06/2024 8:45 AM CASH ANALYST Nurse/Clinic Staff Only [facility] [address] [place] [address] Immunization/Injecti on (2ND HEPATITIS B VACCINE ); Immunization/Injecti on 06/05/2024 Travel 06/04/2024 5:05 PM CASH ANALYST Office Visit [facility] [address] [place] [place] [address] Laura Love, INSURANCE FOLLOW UP REP Cough 06/04/2024 Travel 05/06/2024 Nurse/Clinic Staff Only [facility] [address] [place] [address] Sheryl Ventura MD 05/05/2024 Travel from Last 3 Months Immunizations Immunization Administration Dates Next Due AMB Influenza, IIV4 PF (=>6 mos Flulaval,Fluzone Fluarix)(Flu Clinic Only) 02/26/2019 COVID-19 vaccine (Bridj 30mcg/0.3mL) PF, MDV 03/26/2021,09/09/2020,08/19/2020 DTaP 12/18/2007, 7,2003,04/21,2003 [...] on file Legal Sex Female 6:30 AM CASH ANALYST Gender Identity Not on file Sexual Orientation Not on file Obstetrics History Para Term AB IAB SAB Ectopic Multiple Livin g Live Births 0 0 0 0 0 0 0 0 0 0 0 Last Filed Vital Signs Vital Sign Reading Time Taken Comments Blood Pressure 101/69 06/28/2024 8:30 AM CASH ANALYST Pulse 85 06/28/2024 8:30 AM CASH ANALYST Temperature 36.8 C (98.2 F) 06/04/2024 5:51 PM CASH ANALYST Respiratory Rate 18 06/04/2024 5:51 PM CASH ANALYST Oxygen Saturation 99% 06/28/2024 8:30 AM CASH ANALYST Inhaled Oxygen Concentration - - Weight 98.8 kg (217 lb 12.8 oz) 06/28/2024 8:30 AM CASH ANALYST Height 171 cm (5' 7.32) 06/28/2024 8:30 AM CASH ANALYST Body Mass Index 33.79 06/28/2024 8:30 AM CASH ANALYST Plan of Treatment Upcoming Encounters Date Type Department Care Team (Late st Contact Info) Description 11/04/2024 10:15 AM CDT Nurse/Clinic Staff Only [facility] [address] [place] [address] 12/23/2024 11:00 AM CDT Office Visit [facility] [address] [place] [address] Ana Barney PA [address] [place] [address] Health Maintenance Due Date Last Done Comments [...] Procedure Name Priority Date/Time Associated Diagnosis Comments INSPECTOR AND HAND PACKAGER THIN PREP PAP SCREEN IMAGED Routine 06/28/2024 9:03 AM CASH ANALYST Pap smear for cervical cancer screening CELIAC CASCADE PANEL Routine 06/28/2024 8:58 AM CASH ANALYST Family history of celiac disease GC CHLAMYDIA TRACH PROBE Routine 11/07/2023 8:50 AM CDT Lower urinary tract symptoms (LUTS) ANTI HIV 1/2 Routine 01/27/2023 10:01 AM CDT Screening for HIV (human immunodeficiency virus) from Last 3 Months or Most Recently Relevant to Health Maintenance Results * INSPECTOR AND HAND PACKAGER THIN PREP PAP SCREEN IMAGED (06/28/2024 9:03 AM CASH ANALYST) Case Report Gynecologic Cytology Report Case: [id number] Authorizing Provider: Sheryl Ventura Collected: 06/28/2024 0903 MD Zara Ordering Location: [facility] Received: 06/28/2024 0903 Clinic First Screen: Ramy Mendez Specimen: INSPECTOR AND HAND PACKAGER ThinPrep Vial Screening, Cervical 07/10/2024 12:22 PM CDT [facility] Open English [facility] INTERPRETATION/ RESULT NEGATIVE FOR INTRAEPITHELIAL LESION OR MALIGNANCY (NIL) (none) 07/10/2024 12:22 PM CDT [facility] at 1222 CDT ORGANISM(S) Shift in daniel suggestive of bacterial vaginosis 07/10/2024 12:22 PM CDT [facility] SPECIMEN ADEQUACY Satisfactory for evaluation Endocervical component present 07/10/2024 12:22 PM CDT [facility] Date of LMP 05/06/2024 07/10/2024 12:22 PM CDT [facility] EN[facility] Last Pap Date 03/25/24 07/10/2024 12:22 PM CDT [facility] Last Pap Result UNS 12:22 PM CDT [facility] Abnormal Pap or [place] Bx in last 5 years No 07/10/2024 12:22 PM CDT [facility] Menstrual Status Regular Periods 07/10/2024 12:22 PM CDT [facility] [place] Bx Done Today No 07/10/2024 12:22 PM CDT [facility] ENTR[facility] LAB[facility] Additional Information None given 07/10/2024 12:22 PM CDT [facility] Comment: Cytology is screened at [facility], Central Laboratory - [address], [place] [address] and [facility] - [address] [place] [address] and [facility] - [address], [place] [address] Interpreted at [facility], Central Laboratory - [address], [place] [address] Automated Review Successful 07/10/2024 12:22 PM CDT [facility] Open English [facility] ENTRAL LAB[facility] Comment:Specimen processed s uccessfully by automated photogeologist device, ThinPrep Imaging System, [employer] Note The pap test is a [...] and malignant lesions. 07/10/2024 12:22 PM CDT [facility] Other (Cervical) Non-Blood / Unknown 06/28/2024 9:03 AM CASH ANALYST 06/28/2024 9:03 AM CASH ANALYST Sheryl Ventura MD PATHOLOGY/CYTOLOGY Final Result Performing Organization Address [facility] Co de Phone Number [facility] [address] [place] [address], [place] * (ABNORMAL) CELIAC CASCADE PANEL (06/28/2024 8:58 AM CASH ANALYST) CELIAC DISEASE COMPREHENSIVE PANEL INTERPRETATION [employer] Comment: No serological evidence of celiac disease. Total serum IgA is elevated. Consider mucosal inflammatory conditions or underlying gammopathy. TISSUE TRANSGLUTAMINASE AB, IGA <1.0 U/mL [employer] Comment: Value Interpretation ----- <15.0 Antibody not detected > or = 15.0 Antibody detected IMMUNOGLOBULIN A 384(H) 47 - 310 mg/dL [employer] Blood BLOOD SPECIMEN / Unknown 06/28/2024 8:58 AM CASH ANALYST 06/28/2024 8:58 AM CASH ANALYST Sheryl Ventura MD SEND OUTS Fin al Result Performing Organization Address City/[facility]/ZIP Co de Phone Number [employer] [facility] [address] [place] [address], [place] [phone] [facility] [address] [place] [address] * GC & CHLAMYDIA DNA PCR [[id number]] (11/07/2023 8:50 AM CDT) CHLAMYDIA PROBE Negative 8:10 PM CDT [facility] N GONORRHOEAE PROBE Negative 11/07/2023 8:10 PM CDT [facility] Other URINE SPECIMEN / Unknown Non-Blood / Unknown 11/07/2023 8:50 AM CDT 11/07/2023 8:50 AM CDT us Ene [facility]ALE[facility] MICROBIOLOGY Final Result Performing Organization Address [facility]/ZIP Co de Phone Number [facility] [address] [place] [address], [place] * ANTI HIV 1/2 [79164.0] (01/27/2023 10:01 AM CDT) Pathologist [facility] HIV-1/HIV-2 SCREEN Non-Reacti ve Non-Reacti ve 01/27/2023 4:50 PM CDT [facility] Comment:HIV-1 p24 and HIV-1/ HIV-2 Ab Not Detected. Blood BLOOD SPECIMEN / Unknown Venipuncture / Unknown 01/27/2023 10:01 AM CDT 01/27/2023 10:03 AM CDT us Sheryl Ventura MD SEND OUTS Fin al Result [facility] [address] [place] [address], from Last 3 Months or Most Recently Relevant to Health Maintenance Insurance [facility] FED EMP [facility] FED EMP WC [facility] [employer] Care Teams Vp Cardiovascular Service Line Relationship Specialty Start Date End Date Sheryl Ventura MD [address] [place] [address] PCP - General Pediatric 10/19/18 Manisha Ramos INSURANCE FOLLOW UP REP Family Practice 10/15/10 Elisha Infante OD Transmitter Chief 07/29/13 Barbara Lu MD Ophthalmology Surgery 12/09/13 Elisha Infante OD Transmitter Chief 07/29/13 Barbara Lu MD Ophthalmology Surgery 12/09/13
--- OUTSIDE RECORDS SUMMARY | 2024-07-28 01:48 | XMS_ITS | Clinical Summary ---
Author Organization [facility] Address [address] [address] Phone Care Team Providers Care Machine Adjuster Leader Case Trim Name Role Phone Unavailable Primary Care Provider [...] Completed 12/09/2016, 02/19/2016 Insurance [employer] [facility]
[2024-07-28 02:05] VITALS: TEMP 36.8
[2024-07-28] MEDS: KETOROLAC 30 MG/ML inj IVP (02:05)
[2024-07-28 02:14] LABS: D Dimer Quantitative* 0.31 ug/ml (0.00-0.50)
[2024-07-28 02:29] VITALS: BP 127/79; PULSE 81; RESP 18; TEMP 36.8
== END 2024-07-28 02:30 | disposition home or self-care (01) ==
PROVIDERS: Emergency Provider Family Medicine; PCP Pediatrics
DX: R10.9 Unspecified abdominal pain (principal)
CPT/HCPCS: 36415; 74176; 80048; 80076; 81001; 81025; 85025; 85379; 87086; 94761; 96374; 99284; A9270; J1885

== ENCOUNTER 2025-03-28 18:26 | Outpatient (CLI) | payer BC, SELFPAY ==
[2025-03-29 00:34] LABS: Chlamydia DNA Amplified* NOT DETECTED (No Detected); GC DNA Amplified* NOT DETECTED (No Detected)
== END 2025-03-28 18:27 | disposition home or self-care (01) ==
LOC: NFLDUCREF 18:26
PROVIDERS: PCP Pediatrics; Visit Provider Physician Assistant Surgical
DX: Z11.3 Encounter for screening for infections with a predominantly sexual mode of transmission (principal)
CPT/HCPCS: 87086; 87491; 87591